=== PATIENT | male | born 1970 | race Caucasian/White ===

== ENCOUNTER 2024-06-21 00:24 | Emergency (ER) | payer MEDICAID ==
[~2024-06-21] VITALS: Ht 160 cm; Wt 58.2 kg
[~2024-06-21 00:24] MED LIST: ALBU8HFA PO
[2024-06-21 00:26] VITALS: BP 147/101; PULSE 81; RESP 18; TEMP 98; O2SAT 96
[2024-06-21] MEDS ORDERED: CLIN-214 PO (01:29)
[2024-06-21] MEDS: clindamycin 150mg capsule PO ONE (01:45)
== END 2024-06-21 02:25 | disposition home or self-care (01) ==
LOC: ER 00:24
DX: L03.111 Cellulitis of right axilla (principal); Z88.0 Allergy status to penicillin
CPT/HCPCS: 99283